=== PATIENT | male | born 1940 | race Caucasian/White ===

== ENCOUNTER → 2019-02-03 | Outpatient (CLI) | payer MEDICARE ==
[2019-02-03 19:03] LABS: Creatinine, Urine Random 65.1 mg/dL (27.00-270.00)
[2019-02-03 19:06] LABS: Microalb/Creat Ratio UR, Rand 33.18 mg/g (0.000-30.000); Microalbumin, Random Urine 21.6 mg/L (0.000-20.000)
== END | disposition home or self-care (01) ==
LOC: LAB SRC 11:45 → LAB SHORT 11:45 → EDSTATUS 01-29 10:10 → LAB FUT 01-29 10:10
PROVIDERS: Family Medicine
DX: E03.9 Hypothyroidism, unspecified (principal); E78.5 Hyperlipidemia, unspecified; E11.9 Type 2 diabetes mellitus without complications; I10 Essential (primary) hypertension; Z76.89 Persons encountering health services in other specified circumstances
CPT/HCPCS: 82043; 82570